=== PATIENT | male | born 1990 | race Caucasian/White ===

== ENCOUNTER 2017-03-26 16:25 | Emergency (ER) | payer BC, MEDICAID ==
--- NOTE | 2017-03-26 17:08 | Emergency Department Record ---
History of Present Illness - General Chief complaint: Extremity Problem Stated complaint: RIGHT HAND INJURY Time Seen by Provider: 03/26/17 16:51 Source: Patient Mode of Arrival: Ambulatory Limitations: No limitations - History of Present Illness Initial comments: pt hit a steel door w his r hand because he was upset an hour ago. he has a hx of a boxers fx 15yrs ago. MD Complaint: Extremity pain, Extremity swelling Onset/Timin -: Hour(s) Location: Right, Hand History of Same: No Radiation: Distal Severity scale (1-10): 10 Quality: Aching Consistency: Constant Improves with: Nothing Worsens with: Nothing Associated Symptoms: Denies other symptoms - Related Data Previous Rx's Medication Instructions Recorded Hydrocodone/Acetaminophen [[place] 1 each PO Q6HR #7 tablet 03/26/17 5-325 Tablet] Allergies Allergy/AdvReac Type Severity Reaction Status Date / Time iodine Allergy RASH Verified 03/26/17 16:35 Travel Screening - Travel/Exposure Within Last 30 Days Have you traveled within the last 30 days?: No Review of Systems Reviewed: No additional complaints except as noted below Constitutional: Reports: As per HPI. Denies: Chills, Fever, Malaise, Night sweats, Weakness, Weight change Eyes: Reports: As per HPI. Denies: Eye discharge, Eye pain, Photophobia, Vision change ENT: Reports: As per HPI. Denies: Congestion, Dental pain, Ear pain, Epistaxis , Hearing loss, Throat pain Respiratory: Reports: As per HPI. Denies: Cough, Dyspnea, Hemoptysis, Stridor, Wheezes Cardiovascular: Reports: As per HPI. Denies: Arrhythmia, Chest pain, Dyspnea on exertion, Edema, Murmurs, Orthopnea, Palpitations, Paroxysmal nocturnal dyspnea, Rheumatic Fever, Syncope Endocrine: Reports: As per HPI. Denies: Fatigue, Heat or cold intolerance, Polydipsia, Polyuria Gastrointestinal: Reports: As per HPI. Denies: Abdominal pain, Constipation, Diarrhea, Hematemesis, Hematochezia, Melena, Nausea, Vomiting Genitourinary: Reports: As per HPI. Denies: Dysuria, Frequency, Hematuria, Incontinence, Retention, Testicular pain, Testicular mass, Urgency Musculoskeletal: Reports: As per HPI. Denies: Arthralgia, Back pain, Gout, Joint swelling, Myalgia, Neck pain Skin: Reports: As per HPI. Denies: Bruising, Change in color, Change in hair/ nails, Lesions, Pruritus, Rash Neurological: Reports: As per HPI. Denies: Abnormal gait, Confusion, Headache, Numbness, Paresthesias, Seizure, Tingling, Tremors, Vertigo, Weakness Psychiatric: Reports: As per HPI. Denies: Anxiety, Auditory hallucinations, Depression, Homicidal thoughts, Suicidal thoughts, Visual hallucinations Hematological/Lymphatic: Reports: As per HPI. Denies: Anemia, Blood Clots, Easy bleeding, Easy bruising, Swollen glands Past Medical History - SOCIAL HISTORY Smoking Status: Current every day smoker Alcohol Use: None Drug Use: None - RESPIRATORY Hx Respiratory Disorders: No - CARDIOVASCULAR Hx Cardio Disorders: No - NEURO Hx Neuro Disorders: No - GI Hx GI Disorders: No - Hx Genitourinary Disorders: No - ENDOCRINE Hx Endocrine Disorders: No - MUSCULOSKELETAL Hx Musculoskeletal Disorders: No - PSYCH Hx Psych Problems: No - HEMATOLOGY/ONCOLOGY Hx Hematology/Oncology Disorders: No Family Medical History Any Significant Family History?: Yes Hx Cancer: Grandparents Hx Diabetes: Grandparents Physical Exam - General General Appearance: Alert, Oriented x3, Cooperative, Mild distress - Head Head exam: Normal inspection - Eye Eye exam: Normal appearance, PERRL, EOMI Pupils: Normal accommodation - ENT ENT exam: Normal exam, Mucous membranes moist, Normal external ear exam, Normal orophraynx Ear exam: Normal external inspection. negative: External canal tenderness Nasal Exam: Normal inspection. negative: Discharge, Sinus tenderness Mouth exam: Normal external inspection, Tongue normal Teeth exam: Normal inspection. negative: Dental caries Throat exam: Normal inspection. negative: Tonsillar erythema, Tonsillar exudate - Neck Neck exam: Normal inspection, Full ROM. negative: Tenderness - Respiratory Respiratory exam: Normal lung sounds bilaterally. negative: Respiratory distress - Cardiovascular Cardiovascular Exam: Regular rate, Normal rhythm, Normal heart sounds - GI/Abdominal GI/Abdominal exam: Soft, Normal bowel sounds. negative: Tenderness - Rectal Rectal exam: Deferred - exam: Deferred - Extremities Extremities exam: Normal inspection, Full ROM, Normal capillary refill, Tenderness Image of Hand: 1 - swelling and bony deformity - Back Back exam: Reports: Normal inspection, Full ROM. Denies: Muscle spasm, Rash noted, Tenderness - Neurological Neurological exam: Alert, CN II-XII intact, Normal gait, Oriented X3 - Psychiatric Psychiatric exam: Normal affect, Normal mood - Skin Skin exam: Dry, Intact, Normal color, Warm Course Vital Signs 03/26/17 16:32 Temperature 99.1 F Pulse Rate 104 H Respiratory 20 Rate Blood Pressure 129/86 Pulse Ox 99 Disposition Disposition: Discharge Clinical Impression: Boxers fracture Qualifiers: Encounter type: initial encounter Fracture type: closed Qualified Code(s): S62.339A - Displaced fracture of neck of unspecified metacarpal bone, initial encounter for closed fracture Disposition: Home, Self-Care Condition: (1) Good Instructions: Boxer Fracture (ED) Additional Instructions: follow up with orthopedic doctor. return sooner if worse. ice and elevate. motrin with pain Prescriptions: Hydrocodone/Acetaminophen [[place] 5-325 Tablet] 1 each PO Q6HR #7 tablet Referrals: KASEY KELLER [DOCTOR OF OSTEOPATH] - [facility] [Provider Group] Forms: Patient Portal Access Quality - Quality Measures Quality Measures: N/A - Blood Pressure Screening Does Patient Have Any of the Following: No Blood Pressure Classification: Pre-Hypertensive BP Reading Systolic Measurement: 129 Diastolic Measurement: 86 Screening for High Blood Pressure: < Pre-Hypertensive BP, F/U Documented > [ G8950] Pre-Hypertensive Follow-up Interventions: Follow-up with rescreen every year.
[2017-03-26] MEDS: HYDROCODONE/APAP 5/325MG TABLET PO ONE (18:41)
--- NOTE | 2017-03-28 13:16 | RADIOLOGY REPORT ---
EXAM: RIGHT HAND, THREE VIEWS HISTORY: PAIN IN FIFTH DIGIT REGION AFTER PUNCHING DOOR. HISTORY OF BOXER'S FRACTURE YEARS AGO. TECHNIQUE: Three views of the right hand were obtained. Comparison: None. Encounter: Initial. FINDINGS: There is normal bone mineralization. There is deformity of the distal aspect of the fifth metacarpal, the majority of which appears chronic though there is possible acute articular surface step-off superimposed and a nondisplaced superimposed fracture cannot be excluded. There is overlying soft tissue swelling. No other osseous evidence of fracture nor is there dislocation. The articular relations are maintained. IMPRESSION: THERE IS EVIDENCE OF AN OLD HEALED FRACTURE OF THE DISTAL FIFTH METACARPAL. THERE IS, HOWEVER, A POSSIBLE NONDISPLACED ACUTE FRACTURE SUPERIMPOSED ON THE CHRONIC DEFORMITY. THERE IS SOFT TISSUE SWELLING. NO OTHER FRACTURE NOR DISLOCATION. JOB NUMBER: [id number] [facility]
== END 2017-03-26 18:58 | disposition home or self-care (01) ==
LOC: ER 16:25
DX: S62.366A Nondisplaced fracture of neck of fifth metacarpal bone, right hand, initial encounter for closed fracture (principal); W22.8XXA Striking against or struck by other objects, initial encounter
CPT/HCPCS: 99283

== ENCOUNTER 2017-10-20 00:26 | Emergency (ER) | payer SELFPAY ==
[2017-10-20 00:53] LABS: AMPHETAMINE SCREEN URINE NOT DETECTED; BARBITURATE SCREEN URINE NOT DETECTED; BENZODIAZEPINE SCREEN URINE NOT DETECTED; COCAINE SCREEN URINE NOT DETECTED; METHADONE SCREEN URINE NOT DETECTED; METHAMPHETAMINE SCREEN NOT DETECTED; OPIATE SCREEN URINE NOT DETECTED; OXYCODONE SCREEN URINE NOT DETECTED; PHENCYCLIDINE SCREEN URINE NOT DETECTED; PROPOXYPHENE SCREEN URINE NOT DETECTED; THC SCREEN URINE DETECTED; TRICYCLIC ANTIDEPRESSANT SCRN NOT DETECTED
--- NOTE | 2017-10-20 00:53 | Emergency Department Record ---
History of Present Illness - General Chief Complaint: Suicidal thoughts Stated Complaint: SUCIDAL Time Seen by Provider: 10/20/17 00:28 Source: Patient Mode of Arrival: Ambulatory Limitations: No limitations Travel/Exposure to [place] Within 21 Days of Symptoms: No - History of Present Illness Initial Comments: 26 yo male presents to ED for evaluation of suicidal ideation. Per friends at the bedside, the patient stated that he wanted to be dropped at home "so that he could kill himself" following a recent break-up, patient reports that he has been drinking alcohol tonight and that he was only joking. Friends at the bedside report a prevuious history of self harm (cutting of the wrists), but do no report previous suicide attempt. MD Complaint: Other Onset/Timin -: Hour(s) Associated Psychiatric Symptoms: Other History of same: Yes Improves With: None Worsens With: Alcohol Associated Symptoms: Denies other symptoms Treatments Prior to Arrival: None - Ted Coma Scale Eye Response: (4) Open spontaneously Motor Response: (6) Obeys commands Verbal Response: (5) Oriented [place] Total: 15 - Related Data Previous Rx's Medication Instructions Recorded Hydrocodone/Acetaminophen [[place] 1 each PO Q6HR #7 tablet 03/26/17 5-325 Tablet] Allergies Allergy/AdvReac Type Severity Reaction Status Date / Time iodine Allergy RASH Verified 03/26/17 16:35 Review of Systems ROS unobtainable: Other (Patient is non-cooperative with the history and physical examination) Past Medical History - SOCIAL HISTORY Smoking Status: Current every day smoker Alcohol Use: None Drug Use: None - RESPIRATORY Hx Respiratory Disorders: No - CARDIOVASCULAR Hx Cardio Disorders: No - NEURO Hx Neuro Disorders: No - GI Hx GI Disorders: No - Hx Genitourinary Disorders: No - ENDOCRINE Hx Endocrine Disorders: No - MUSCULOSKELETAL Hx Musculoskeletal Disorders: No Comment:: L shoulder pain - PSYCH Hx Psych Problems: No - HEMATOLOGY/ONCOLOGY Hx Hematology/Oncology Disorders: No Family Medical History Any Significant Family History?: No Hx Cancer: Grandparents Hx Diabetes: Grandparents Physical Exam - General General Appearance: Alert, Oriented x3, Cooperative, Other (Patient is clinically intoxicated, agitated on exam.) Limitations: No limitations - Head Head exam: Atraumatic, Normocephalic, Normal inspection Head exam detail: negative: Abrasion, Contusion, Garcia's sign, General tenderness, Hematoma, Laceration - Eye Eye exam: Normal appearance. negative: Conjunctival injection, Periorbital swelling, Periorbital tenderness, Scleral icterus - ENT Ear exam: negative: Auricular hematoma, Auricular trauma Nasal Exam: negative: Active bleeding, Discharge, Dried blood, Foreign body Mouth exam: negative: Drooling, Laceration, Muffled voice, Tongue elevation - Neck Neck exam: Normal inspection. negative: Meningismus, Tenderness - Respiratory Respiratory exam: Normal lung sounds bilaterally. negative: Rales, Respiratory distress, Rhonchi, Stridor - Cardiovascular Cardiovascular Exam: Regular rate, Normal rhythm, Normal heart sounds - GI/Abdominal GI/Abdominal exam: Soft. negative: Rebound, Rigid, Tenderness - Rectal Rectal exam: Deferred - exam: Deferred - Extremities Extremities exam: Other (Previous well-healed scars to the left wrist on examination). negative: Calf tenderness, Pedal edema, Tenderness - Back Back exam: Denies: CVA tenderness (R), CVA tenderness (L) - Neurological Neurological exam: Alert, Normal gait, Oriented X3 - Psychiatric Psychiatric exam: Agitated - Skin Skin exam: Normal color. negative: Abrasion Type of lesion: negative: abrasion Course Vital Signs 10/20/17 00:31 Temperature 97.8 F Pulse Rate [ 90 Pulse Ox Probe] Respiratory 22 Rate Blood Pressure 138/88 [Left Arm] Pulse Ox 98 - Reevaluation(s) Reevaluation #1: 10/20/17 01:10 Patient fled while all staff members were in rooms with other patients, police notified. Reevaluation #2: 10/20/17 01:37 Labs reviewed, Alcohol 0.291, labs are otherwise grossly unremarkable for an acute process. Medical Decision Making - Lab Data Result diagrams: 10/20/17 00:53 10/20/17 00:53 Disposition Disposition: Other ([place]) Clinical Impression: Alcohol intoxication Qualifiers: Complication of substance-induced condition: uncomplicated Qualified Code(s): F10.920 - Alcohol use, unspecified with intoxication, uncomplicated Disposition: Home, Self-Care Forms: Patient Portal Access Time of Disposition: 02:31 Quality - Quality Measures Quality Measures: N/A - Blood Pressure Screening Does Patient Have Any of the Following: No Blood Pressure Classification: Pre-Hypertensive BP Reading Systolic Measurement: 138 Diastolic Measurement: 88 Screening for High Blood Pressure: < Pre-Hypertensive BP, F/U Documented > [ G8950] Pre-Hypertensive Follow-up Interventions: Referral to alternative/primary care provider.
[2017-10-20 01:02] LABS: BASO % 0.5 % (0-6); HEMATOCRIT 43.5 % (42.0-52.0); HEMOGLOBIN 14.6 gm/dl (14.0-18.0); LYMPH % 29.7 % (16-45); MEAN CELL VOLUME 93.8 fl (81-97); MEAN CORPUSCULAR HEMOGLOBIN 31.5 pg (27-33); MEAN CORPUSCULAR HGB CONC 33.6 g/dl (32-36); MEAN PLATELET VOLUME 10.1 fl (7.4-10.4); MONO % 7.8 % (0-9); PLATELET COUNT 385 K/uL (130-400); RED BLOOD COUNT 4.64 M/uL (4.40-5.70); RED CELL DISTRIBUTION WIDTH 15.2 % (11.5-14.5); WHITE BLOOD COUNT W/O DIFF 8.6 K/uL (4.2-12.2)
[2017-10-20 01:17] LABS: ALBUMIN 4.6 g/dL (4.0-5.0); ALKALINE PHOSPHATASE 78 U/L (40-129); ALT/SGPT 31 U/L (<41); AST/SGOT 32 U/L (10.0-50.0); BLOOD UREA NITROGEN 8 mg/dL (6-20)
[2017-10-20 01:18] LABS: ACETAMINOPHEN < 5.0 ug/mL (10.0-30.0); ALB/GLOB RATIO 1.5 (1.1-1.8); ALCOHOL 0.291 g/dL (0-0.010); CREATININE 0.6 mg/dL (0.7-1.2); EST GLOMERULAR FILTRATION RATE > 60 mL/min; GLUCOSE,RANDOM 80 mg/dL (74-109); SALICYLATE < 0.3 mg/dL (2.8-20); TOTAL PROTEIN 7.7 g/dL (6.6-8.7)
[2017-10-20 01:28] LABS: THYROID STIMULATING HORMONE 1.57 uIU/mL (0.270-4.20)
== END 2017-10-20 01:00 | disposition home or self-care (01) ==
LOC: ER 00:26
DX: F10.120 Alcohol abuse with intoxication, uncomplicated (principal); F17.210 Nicotine dependence, cigarettes, uncomplicated; Y90.8 Blood alcohol level of 240 mg/100 ml or more
CPT/HCPCS: 99283 ×2; 85025; 80053; 84443; 80305; G0480 ×3; 80320; 80329

== ENCOUNTER 2017-10-20 02:30 | Emergency (ER) | payer SELFPAY ==
--- NOTE | 2017-10-20 02:39 | Emergency Department Record ---
History of Present Illness - General Stated Complaint: ALC INTOX Time Seen by Provider: 10/20/17 02:32 Source: Patient Mode of Arrival: Ambulatory Limitations: No limitations - History of Present Illness Initial Comments: 26 yo male returns with police for re-evaluation. Patient was seen earlier this evening for alcohol intoxication and reported suicidal statements, patient reports "I was just joking and didn't mean". Patient reports that he was upset that his girlfriend left him for a friend of his. Per friends a the bedside, patient has a history of self harm previously (cutting). Patient does reports drinking alcohol tonight. MD Complaint: Alcohol intoxication Last Drink: Unknown Time Since Last Drink: 2 -: Hour(s) Recent Trauma: No Associated Symptoms: Denies other symptoms Treatments Prior to Arrival: None - Ted Coma Scale Eye Response: (4) Open spontaneously Motor Response: (6) Obeys commands Verbal Response: (5) Oriented [place] Total: 15 - Related Data Previous Rx's Medication Instructions Recorded Hydrocodone/Acetaminophen [[place] 1 each PO Q6HR #7 tablet 03/26/17 5-325 Tablet] Allergies Allergy/AdvReac Type Severity Reaction Status Date / Time iodine Allergy RASH Verified 03/26/17 16:35 Review of Systems ROS unobtainable: Other (Patient is non-cooperative with the examination) Past Medical History - SOCIAL HISTORY Smoking Status: Current every day smoker Drug Use: None - RESPIRATORY Hx Respiratory Disorders: No - CARDIOVASCULAR Hx Cardio Disorders: No - NEURO Hx Neuro Disorders: No - GI Hx GI Disorders: No - Hx Genitourinary Disorders: No - ENDOCRINE Hx Endocrine Disorders: No - MUSCULOSKELETAL Hx Musculoskeletal Disorders: No Comment:: L shoulder pain - PSYCH Hx Psych Problems: No - HEMATOLOGY/ONCOLOGY Hx Hematology/Oncology Disorders: No Family Medical History Hx Cancer: Grandparents Hx Diabetes: Grandparents Physical Exam - General General Appearance: Alert, Oriented x3, Other (Clinically intoxicated) Limitations: No limitations - Head Head exam: Atraumatic, Normocephalic, Normal inspection Head exam detail: negative: Abrasion, Contusion, Garcia's sign, General tenderness, Hematoma, Laceration - Eye Eye exam: Normal appearance. negative: Conjunctival injection, Periorbital swelling, Periorbital tenderness, Scleral icterus - ENT Ear exam: negative: Auricular hematoma, Auricular trauma Nasal Exam: negative: Active bleeding, Discharge, Dried blood, Foreign body - Neck Neck exam: Normal inspection. negative: Meningismus, Tenderness - Respiratory Respiratory exam: Normal lung sounds bilaterally. negative: Rales, Respiratory distress, Rhonchi, Stridor - Cardiovascular Cardiovascular Exam: Regular rate, Normal rhythm, Normal heart sounds - GI/Abdominal GI/Abdominal exam: Soft. negative: Rebound, Rigid, Tenderness - Rectal Rectal exam: Deferred - exam: Deferred - Extremities Extremities exam: Normal inspection. negative: Pedal edema, Tenderness - Back Back exam: Denies: CVA tenderness (R), CVA tenderness (L) - Neurological Neurological exam: Alert, Normal gait, Oriented X3 - Psychiatric Psychiatric exam: Agitated - Skin Skin exam: Normal color. negative: Abrasion Type of lesion: negative: abrasion Course - Reevaluation(s) Reevaluation #1: 10/20/17 04:21 Labs reviewed, Alcohol 0.238, labs are otherwise grossly unremarkable for an acute process. Patient is resting comfortably at this time, will continue to observe pending alcohol detoxification for psychiatric re-evaluation. Reevaluation #2: 10/20/17 06:33 Patient reassessed, resting comfortably at this time. Patient's care will be turned over with a plan for re-evaluation for suicidal ideation when his alcohol level is <0.80. Medical Decision Making - Lab Data Result diagrams: 10/20/17 02:45 10/20/17 02:45 Quality - Quality Measures Quality Measures: N/A - Blood Pressure Screening Does Patient Have Any of the Following: No Blood Pressure Classification: Normal BP Reading Systolic Measurement: 110 Diastolic Measurement: 68 Screening for High Blood Pressure: < Normal BP, F/U Not Required > [G8783]
[2017-10-20 02:57] LABS: BASO % 0.5 % (0-6); EOS % 2.6 % (0-6); GRAN % 69.6 % (47-80); HEMATOCRIT 42.2 % (42.0-52.0); HEMOGLOBIN 14.3 gm/dl (14.0-18.0); LYMPH % 22.2 % (16-45); MEAN CELL VOLUME 93.2 fl (81-97); MEAN CORPUSCULAR HEMOGLOBIN 31.6 pg (27-33); MEAN CORPUSCULAR HGB CONC 33.9 g/dl (32-36); MEAN PLATELET VOLUME 10.2 fl (7.4-10.4); MONO % 5.1 % (0-9); PLATELET COUNT 387 K/uL (130-400); RED BLOOD COUNT 4.53 M/uL (4.40-5.70); RED CELL DISTRIBUTION WIDTH 15.2 % (11.5-14.5); WHITE BLOOD COUNT W/O DIFF 7.7 K/uL (4.2-12.2)
[2017-10-20 03:08] LABS: BLOOD UREA NITROGEN 8 mg/dL (6-20); CREATININE 0.6 mg/dL (0.7-1.2); EST GLOMERULAR FILTRATION RATE > 60 mL/min
[2017-10-20 03:09] LABS: ALCOHOL 0.238 g/dL (0-0.010); TOTAL PROTEIN 7.6 g/dL (6.6-8.7)
[2017-10-20 03:11] LABS: GLUCOSE,RANDOM 86 mg/dL (74-109)
[2017-10-20 03:13] LABS: ALB/GLOB RATIO 1.4 (1.1-1.8); ALBUMIN 4.4 g/dL (4.0-5.0); ALKALINE PHOSPHATASE 78 U/L (40-129); ALT/SGPT 31 U/L (<41); AST/SGOT 35 U/L (10.0-50.0)
[2017-10-20 03:14] LABS: ACETAMINOPHEN < 5.0 ug/mL (10.0-30.0); SALICYLATE < 0.3 mg/dL (2.8-20)
[2017-10-20] MEDS ORDERED: DIPHENHYDRAMINE HCL 25 MG CAPSULE PO ONE (03:24)
[2017-10-20 05:41] LABS: AMPHETAMINE SCREEN URINE NOT DETECTED; BARBITURATE SCREEN URINE NOT DETECTED; BENZODIAZEPINE SCREEN URINE NOT DETECTED; COCAINE SCREEN URINE NOT DETECTED; METHADONE SCREEN URINE NOT DETECTED; METHAMPHETAMINE SCREEN NOT DETECTED; OPIATE SCREEN URINE NOT DETECTED; OXYCODONE SCREEN URINE NOT DETECTED; PHENCYCLIDINE SCREEN URINE NOT DETECTED; PROPOXYPHENE SCREEN URINE NOT DETECTED; THC SCREEN URINE DETECTED; TRICYCLIC ANTIDEPRESSANT SCRN NOT DETECTED
--- NOTE | 2017-10-20 10:29 | Emergency Department Record ---
History of Present Illness - General Chief Complaint: Alcohol Intoxication Stated Complaint: ALC INTOX Time Seen by Provider: 10/20/17 02:32 Source: Patient Mode of Arrival: Ambulatory Limitations: No limitations - History of Present Illness Last Drink: Unknown Time Since Last Drink: 2 -: Hour(s) Chronic Alcohol Use: Yes Previous Visits for Alcohol Intoxication?: No Recent Trauma: No Associated Symptoms: Denies other symptoms Treatments Prior to Arrival: None - Ted Coma Scale Eye Response: (4) Open spontaneously Motor Response: (6) Obeys commands Verbal Response: (5) Oriented [place] Total: 15 - Related Data Previous Rx's Medication Instructions Recorded Hydrocodone/Acetaminophen [[place] 1 each PO Q6HR #7 tablet 03/26/17 5-325 Tablet] Allergies Allergy/AdvReac Type Severity Reaction Status Date / Time iodine Allergy RASH Verified 03/26/17 16:35 Travel Screening - Travel/Exposure Within Last 30 Days Have you traveled within the last 30 days?: No - Travel Symptoms Symptom Screening: None Past Medical History - SOCIAL HISTORY Smoking Status: Current every day smoker Drug Use: None - RESPIRATORY Hx Respiratory Disorders: No - CARDIOVASCULAR Hx Cardio Disorders: No - NEURO Hx Neuro Disorders: No - GI Hx GI Disorders: No - Hx Genitourinary Disorders: No - ENDOCRINE Hx Endocrine Disorders: No - MUSCULOSKELETAL Hx Musculoskeletal Disorders: No Comment:: L shoulder pain - PSYCH Hx Psych Problems: No - HEMATOLOGY/ONCOLOGY Hx Hematology/Oncology Disorders: No Family Medical History Hx Cancer: Grandparents Hx Diabetes: Grandparents Physical Exam - General Limitations: No limitations Course Vital Signs 10/20/17 10/20/17 10/20/17 02:57 04:55 09:27 Pulse Rate [ 101 H 91 H 79 Pulse Ox Probe] Respiratory 20 20 16 Rate Blood Pressure 133/105 110/68 122/67 [Left Arm] Pulse Ox 97 98 97 - Reevaluation(s) Reevaluation #1: 10/20/17 10:23 talked w pt when his etoh was0-06. he denies suicidality. girlfriend is present and will be with pt. pt contracted for safety. Medical Decision Making - Lab Data Result diagrams: 10/20/17 02:45 10/20/17 02:45 Lab Results 10/20/17 10/20/17 10/20/17 Range/Units 02:45 02:45 02:45 WBC 7.7 (4.2-12.2) K/uL RBC 4.53 (4.40-5.70) M/uL Hgb 14.3 (14.0-18.0) gm/dl Hct 42.2 (42.0-52.0) % MCV 93.2 (81-97) fl MCH 31.6 (27-33) pg MCHC 33.9 (32-36) g/dl RDW 15.2 H (11.5-14.5) % Plt Count 387 (130-400) K/uL MPV 10.2 (7.4-10.4) fl Gran % 69.6 (47-80) % Lymphocytes % 22.2 (16-45) % Monocytes % 5.1 (0-9) % Eosinophils % 2.6 (0-6) % Basophils % 0.5 (0-6) % Sodium 141 (136-145) mmol/L Potassium 4.2 (3.4-4.5) mmol/L Chloride 104 (98-107) mmol/L Carbon Dioxide 19.0 L (22-29) mmol/L Anion Gap 18.0 H (7-16) BUN 8 (6-20) mg/dL Creatinine 0.6 L (0.7-1.2) mg/dL Estimated GFR > 60 mL/min Random Glucose 86 (74-109) mg/dL Calcium 8.4 L (8.6-10.0) mg/dL Total Bilirubin 0.20 (0.2-1.0) mg/dL AST 35 (10.0-50.0) U/L ALT 31 (<41) U/L Alkaline Phosphatase 78 (40-129) U/L Total Protein 7.6 (6.6-8.7) g/dL Albumin 4.4 (4.0-5.0) g/dL Globulin 3.2 (1.4-4.8) gm/dL Albumin/Globulin Ratio 1.4 (1.1-1.8) TSH 1.57 (0.270-4.20) uIU/mL Salicylates < 0.3 L (2.8-20) mg/dL Urine Opiates Screen Ur Oxycodone Screen Urine Methadone Screen Ur Propoxyphene Screen Acetaminophen < 5.0 L (10.0-30.0) ug/mL Ur Barbituates Screen Ur Tricyclics Screen Ur Phencyclidine Scrn Ur Amphetamine Screen U Methamphetamines Scrn U Benzodiazepines Scrn Urine Cocaine Screen Urine Cannabis Screen Ethyl Alcohol 0.238 H (0-0.010) g/dL 10/20/17 10/20/17 Range/Units 05:41 08:20 WBC (4.2-12.2) K/uL RBC (4.40-5.70) M/uL Hgb (14.0-18.0) gm/dl Hct (42.0-52.0) % MCV (81-97) fl MCH (27-33) pg MCHC (32-36) g/dl RDW (11.5-14.5) % Plt Count (130-400) K/uL MPV (7.4-10.4) fl Gran % (47-80) % Lymphocytes % (16-45) % Monocytes % (0-9) % Eosinophils % (0-6) % Basophils % (0-6) % Sodium (136-145) mmol/L Potassium (3.4-4.5) mmol/L Chloride (98-107) mmol/L Carbon Dioxide (22-29) mmol/L Anion Gap (7-16) BUN (6-20) mg/dL Creatinine (0.7-1.2) mg/dL Estimated GFR mL/min Random Glucose (74-109) mg/dL Calcium (8.6-10.0) mg/dL Total Bilirubin (0.2-1.0) mg/dL AST (10.0-50.0) U/L ALT (<41) U/L Alkaline Phosphatase (40-129) U/L Total Protein (6.6-8.7) g/dL Albumin (4.0-5.0) g/dL Globulin (1.4-4.8) gm/dL Albumin/Globulin Ratio (1.1-1.8) TSH (0.270-4.20) uIU/mL Salicylates (2.8-20) mg/dL Urine Opiates Screen Not detected Ur Oxycodone Screen Not detected Urine Methadone Screen Not detected Ur Propoxyphene Screen Not detected Acetaminophen (10.0-30.0) ug/mL Ur Barbituates Screen Not detected Ur Tricyclics Screen Not detected Ur Phencyclidine Scrn Not detected Ur Amphetamine Screen Not detected U Methamphetamines Scrn Not detected U Benzodiazepines Scrn Not detected Urine Cocaine Screen Not detected Urine Cannabis Screen Detected Ethyl Alcohol 0.088 H (0-0.010) g/dL Disposition Disposition: Discharge Clinical Impression: Alcohol intoxication Qualifiers: Complication of substance-induced condition: with unspecified complication Qualified Code(s): F10.929 - Alcohol use, unspecified with intoxication, unspecified Depression Qualifiers: Depression Type: unspecified Qualified Code(s): F32.9 - Major depressive disorder, single episode, unspecified Disposition: Home, Self-Care Condition: (1) Good Instructions: Alcohol Intoxication (ED), Depression (ED), Suicide Prevention for Adults (ED), Abuse of Alcohol (ED) Additional Instructions: follow up with family doctor and counseling. return sooner if worse. decrease alcohol intake Quality - Quality Measures Quality Measures: N/A - Blood Pressure Screening Does Patient Have Any of the Following: No Blood Pressure Classification: Pre-Hypertensive BP Reading Systolic Measurement: 122 Diastolic Measurement: 67 Screening for High Blood Pressure: < Pre-Hypertensive BP, F/U Documented > [ G8950] Pre-Hypertensive Follow-up Interventions: Follow-up with rescreen every year.
--- NOTE | 2017-10-20 10:32 | Emergency Department Record ---
History of Present Illness - General Chief Complaint: Alcohol Intoxication Stated Complaint: ALC INTOX Time Seen by Provider: 10/20/17 02:32 Source: Patient Mode of Arrival: Ambulatory Limitations: No limitations - History of Present Illness Last Drink: Unknown Time Since Last Drink: 2 -: Hour(s) Chronic Alcohol Use: Yes Previous Visits for Alcohol Intoxication?: No Recent Trauma: No Associated Symptoms: Denies other symptoms Treatments Prior to Arrival: None - Ted Coma Scale Eye Response: (4) Open spontaneously Motor Response: (6) Obeys commands Verbal Response: (5) Oriented [place] Total: 15 - Related Data Previous Rx's Medication Instructions Recorded Hydrocodone/Acetaminophen [[place] 1 each PO Q6HR #7 tablet 03/26/17 5-325 Tablet] Allergies Allergy/AdvReac Type Severity Reaction Status Date / Time iodine Allergy RASH Verified 03/26/17 16:35 Travel Screening - Travel/Exposure Within Last 30 Days Have you traveled within the last 30 days?: No - Travel Symptoms Symptom Screening: None Past Medical History - SOCIAL HISTORY Smoking Status: Current every day smoker Drug Use: None - RESPIRATORY Hx Respiratory Disorders: No - CARDIOVASCULAR Hx Cardio Disorders: No - NEURO Hx Neuro Disorders: No - GI Hx GI Disorders: No - Hx Genitourinary Disorders: No - ENDOCRINE Hx Endocrine Disorders: No - MUSCULOSKELETAL Hx Musculoskeletal Disorders: No Comment:: L shoulder pain - PSYCH Hx Psych Problems: No - HEMATOLOGY/ONCOLOGY Hx Hematology/Oncology Disorders: No Family Medical History Hx Cancer: Grandparents Hx Diabetes: Grandparents Physical Exam - General Limitations: No limitations Course Vital Signs 10/20/17 10/20/17 10/20/17 02:57 04:55 09:27 Pulse Rate [ 101 H 91 H 79 Pulse Ox Probe] Respiratory 20 20 16 Rate Blood Pressure 133/105 110/68 122/67 [Left Arm] Pulse Ox 97 98 97 - Reevaluation(s) Reevaluation #1: 10/20/17 10:31 pt legally sober now, denies any suicidal thoughts and contracts for safety. pt given numbers for counseling Medical Decision Making - Lab Data Result diagrams: 10/20/17 02:45 10/20/17 02:45 Lab Results 10/20/17 10/20/17 10/20/17 Range/Units 02:45 02:45 02:45 WBC 7.7 (4.2-12.2) K/uL RBC 4.53 (4.40-5.70) M/uL Hgb 14.3 (14.0-18.0) gm/dl Hct 42.2 (42.0-52.0) % MCV 93.2 (81-97) fl MCH 31.6 (27-33) pg MCHC 33.9 (32-36) g/dl RDW 15.2 H (11.5-14.5) % Plt Count 387 (130-400) K/uL MPV 10.2 (7.4-10.4) fl Gran % 69.6 (47-80) % Lymphocytes % 22.2 (16-45) % Monocytes % 5.1 (0-9) % Eosinophils % 2.6 (0-6) % Basophils % 0.5 (0-6) % Sodium 141 (136-145) mmol/L Potassium 4.2 (3.4-4.5) mmol/L Chloride 104 (98-107) mmol/L Carbon Dioxide 19.0 L (22-29) mmol/L Anion Gap 18.0 H (7-16) BUN 8 (6-20) mg/dL Creatinine 0.6 L (0.7-1.2) mg/dL Estimated GFR > 60 mL/min Random Glucose 86 (74-109) mg/dL Calcium 8.4 L (8.6-10.0) mg/dL Total Bilirubin 0.20 (0.2-1.0) mg/dL AST 35 (10.0-50.0) U/L ALT 31 (<41) U/L Alkaline Phosphatase 78 (40-129) U/L Total Protein 7.6 (6.6-8.7) g/dL Albumin 4.4 (4.0-5.0) g/dL Globulin 3.2 (1.4-4.8) gm/dL Albumin/Globulin Ratio 1.4 (1.1-1.8) TSH 1.57 (0.270-4.20) uIU/mL Salicylates < 0.3 L (2.8-20) mg/dL Urine Opiates Screen Ur Oxycodone Screen Urine Methadone Screen Ur Propoxyphene Screen Acetaminophen < 5.0 L (10.0-30.0) ug/mL Ur Barbituates Screen Ur Tricyclics Screen Ur Phencyclidine Scrn Ur Amphetamine Screen U Methamphetamines Scrn U Benzodiazepines Scrn Urine Cocaine Screen Urine Cannabis Screen Ethyl Alcohol 0.238 H (0-0.010) g/dL 10/20/17 10/20/17 Range/Units 05:41 08:20 WBC (4.2-12.2) K/uL RBC (4.40-5.70) M/uL Hgb (14.0-18.0) gm/dl Hct (42.0-52.0) % MCV (81-97) fl MCH (27-33) pg MCHC (32-36) g/dl RDW (11.5-14.5) % Plt Count (130-400) K/uL MPV (7.4-10.4) fl Gran % (47-80) % Lymphocytes % (16-45) % Monocytes % (0-9) % Eosinophils % (0-6) % Basophils % (0-6) % Sodium (136-145) mmol/L Potassium (3.4-4.5) mmol/L Chloride (98-107) mmol/L Carbon Dioxide (22-29) mmol/L Anion Gap (7-16) BUN (6-20) mg/dL Creatinine (0.7-1.2) mg/dL Estimated GFR mL/min Random Glucose (74-109) mg/dL Calcium (8.6-10.0) mg/dL Total Bilirubin (0.2-1.0) mg/dL AST (10.0-50.0) U/L ALT (<41) U/L Alkaline Phosphatase (40-129) U/L Total Protein (6.6-8.7) g/dL Albumin (4.0-5.0) g/dL Globulin (1.4-4.8) gm/dL Albumin/Globulin Ratio (1.1-1.8) TSH (0.270-4.20) uIU/mL Salicylates (2.8-20) mg/dL Urine Opiates Screen Not detected Ur Oxycodone Screen Not detected Urine Methadone Screen Not detected Ur Propoxyphene Screen Not detected Acetaminophen (10.0-30.0) ug/mL Ur Barbituates Screen Not detected Ur Tricyclics Screen Not detected Ur Phencyclidine Scrn Not detected Ur Amphetamine Screen Not detected U Methamphetamines Scrn Not detected U Benzodiazepines Scrn Not detected Urine Cocaine Screen Not detected Urine Cannabis Screen Detected Ethyl Alcohol 0.088 H (0-0.010) g/dL Disposition Disposition: Discharge Clinical Impression: Alcohol intoxication Qualifiers: Complication of substance-induced condition: with unspecified complication Qualified Code(s): F10.929 - Alcohol use, unspecified with intoxication, unspecified Depression Qualifiers: Depression Type: unspecified Qualified Code(s): F32.9 - Major depressive disorder, single episode, unspecified Disposition: Home, Self-Care Condition: (1) Good Instructions: Depression (ED), Alcohol Intoxication (ED), Abuse of Alcohol (ED) , Suicide Prevention for Adults (ED) Additional Instructions: follow up with family doctor and counseling. return sooner if worse. decrease alcohol intake Forms: Patient Portal Access Quality - Quality Measures Quality Measures: N/A - Blood Pressure Screening Does Patient Have Any of the Following: No Blood Pressure Classification: Pre-Hypertensive BP Reading Systolic Measurement: 122 Diastolic Measurement: 67 Screening for High Blood Pressure: < Pre-Hypertensive BP, F/U Documented > [ G8950] Pre-Hypertensive Follow-up Interventions: Follow-up with rescreen every year.
== END 2017-10-20 10:43 | disposition home or self-care (01) ==
LOC: ER 02:30
DX: F10.120 Alcohol abuse with intoxication, uncomplicated (principal); F32.9 Major depressive disorder, single episode, unspecified; F17.210 Nicotine dependence, cigarettes, uncomplicated; Y90.7 Blood alcohol level of 200-239 mg/100 ml
CPT/HCPCS: 99283 ×2; 85025; 80053; 84443; 80305; G0480 ×3; 80320; 80329

== ENCOUNTER 2017-11-12 10:15 | Emergency (ER) | payer SELFPAY ==
--- NOTE | 2017-11-12 10:33 | Emergency Department Record ---
History of Present Illness - General Chief Complaint: Alcohol Intoxication Stated Complaint: INTOXICATION Time Seen by Provider: 11/12/17 10:25 Mode of Arrival: EMS/Police - History of Present Illness Initial Comments: patient was drinking last night and police were called and kandace was transported to the ED for evaluation and he told police he wanted to kill himself. patient was treated 6 months ago at [facility] and he states he was here 2 weeks ago. Associated Symptoms: Denies other symptoms Treatments Prior to Arrival: None - Ted Coma Scale Eye Response: (4) Open spontaneously Motor Response: (6) Obeys commands Verbal Response: (5) Oriented [place] Total: 15 - Related Data Home Medications Medication Instructions Recorded Confirmed Last Taken No Home Med [NO HOME MEDS] 11/12/17 11/12/17 Unknown Allergies Allergy/AdvReac Type Severity Reaction Status Date / Time iodine Allergy RASH Verified 11/12/17 10:25 Travel Screening - Travel/Exposure Within Last 30 Days Have you traveled within the last 30 days?: No Review of Systems Reviewed: No additional complaints except as noted below Constitutional: Reports: As per HPI. Denies: Chills, Fever, Malaise, Night sweats, Weakness, Weight change Eyes: Reports: As per HPI. Denies: Eye discharge, Eye pain, Photophobia, Vision change ENT: Reports: As per HPI. Denies: Congestion, Dental pain, Ear pain, Epistaxis , Hearing loss, Throat pain Respiratory: Reports: As per HPI. Denies: Cough, Dyspnea, Hemoptysis, Stridor, Wheezes Cardiovascular: Reports: As per HPI. Denies: Arrhythmia, Chest pain, Dyspnea on exertion, Edema, Murmurs, Orthopnea, Palpitations, Paroxysmal nocturnal dyspnea, Rheumatic Fever, Syncope Endocrine: Reports: As per HPI. Denies: Fatigue, Heat or cold intolerance, Polydipsia, Polyuria Gastrointestinal: Reports: As per HPI. Denies: Abdominal pain, Constipation, Diarrhea, Hematemesis, Hematochezia, Melena, Nausea, Vomiting Genitourinary: Reports: As per HPI. Denies: Dysuria, Frequency, Hematuria, Incontinence, Retention, Testicular pain, Testicular mass, Urgency Musculoskeletal: Reports: As per HPI. Denies: Arthralgia, Back pain, Gout, Joint swelling, Myalgia, Neck pain Skin: Reports: As per HPI. Denies: Bruising, Change in color, Change in hair/ nails, Lesions, Pruritus, Rash Neurological: Reports: As per HPI. Denies: Abnormal gait, Confusion, Headache, Numbness, Paresthesias, Seizure, Tingling, Tremors, Vertigo, Weakness Psychiatric: Reports: As per HPI. Denies: Anxiety, Auditory hallucinations, Depression, Homicidal thoughts, Suicidal thoughts, Visual hallucinations Hematological/Lymphatic: Reports: As per HPI. Denies: Anemia, Blood Clots, Easy bleeding, Easy bruising, Swollen glands Past Medical History - SOCIAL HISTORY Smoking Status: Current every day smoker Alcohol Use: None Drug Use: Occasional Drug Use Detail:: Marijuana - RESPIRATORY Hx Respiratory Disorders: No - CARDIOVASCULAR Hx Cardio Disorders: No - NEURO Hx Neuro Disorders: No - GI Hx GI Disorders: No - Hx Genitourinary Disorders: No - ENDOCRINE Hx Endocrine Disorders: No - MUSCULOSKELETAL Hx Musculoskeletal Disorders: No Comment:: L shoulder pain - PSYCH Hx Psych Problems: No - HEMATOLOGY/ONCOLOGY Hx Hematology/Oncology Disorders: No Family Medical History Any Significant Family History?: Yes Hx Cancer: Grandparents Hx Diabetes: Grandparents Physical Exam - General General Appearance: Alert, Oriented x3, Cooperative, No acute distress - Head Head exam: Normal inspection - Eye Eye exam: Normal appearance, PERRL Pupils: Normal accommodation - ENT ENT exam: Normal exam, Mucous membranes moist, Normal external ear exam, Normal orophraynx, TM's normal bilaterally Ear exam: Normal external inspection. negative: External canal tenderness Nasal Exam: Normal inspection. negative: Discharge, Sinus tenderness Mouth exam: Normal external inspection, Tongue normal Teeth exam: Normal inspection. negative: Dental caries Throat exam: Normal inspection. negative: Tonsillar erythema, Tonsillar exudate - Neck Neck exam: Normal inspection, Full ROM. negative: Tenderness - Respiratory Respiratory exam: Normal lung sounds bilaterally. negative: Respiratory distress - Cardiovascular Cardiovascular Exam: Regular rate, Normal rhythm, Normal heart sounds - GI/Abdominal GI/Abdominal exam: Soft, Normal bowel sounds. negative: Tenderness - Rectal Rectal exam: Deferred - exam: Deferred - Extremities Extremities exam: Normal inspection, Full ROM, Normal capillary refill. negative: Tenderness - Back Back exam: Reports: Normal inspection, Full ROM. Denies: Muscle spasm, Rash noted, Tenderness - Neurological Neurological exam: Alert, Normal gait, Oriented X3, Reflexes normal - Psychiatric Psychiatric exam: Normal affect, Normal mood - Skin Skin exam: Dry, Intact, Normal color, Warm Course Vital Signs 11/12/17 10:21 Temperature 97.4 F L Pulse Rate 100 H Respiratory 20 Rate Blood Pressure 134/89 Pulse Ox 99 - Reevaluation(s) Reevaluation #1: patient neuro exam is negative and he is alert and acting appropriately and now denies suicidal and he said he was being stupid and he is willing to go back to . He also made a contract with me and would return to ED if he becomes suicidal, also will give him [facility] number for counciling and he should go there in 1-2 days 11/12/17 17:11 11/12/17 17:16 Medical Decision Making - Lab Data Result diagrams: 11/12/17 11:17 11/12/17 11:17 Disposition Clinical Impression: Alcohol intoxication Qualifiers: Complication of substance-induced condition: uncomplicated Qualified Code(s): F10.920 - Alcohol use, unspecified with intoxication, uncomplicated Depression Qualifiers: Depression Type: unspecified Qualified Code(s): F32.9 - Major depressive disorder, single episode, unspecified Disposition: Home, Self-Care Condition: (1) Good Instructions: Abuse of Alcohol (ED) Additional Instructions: follow up councilors at [facility] for counciling and substance abuse treatment. Forms: Patient Portal Access Time of Disposition: 17:16 Quality - Quality Measures Quality Measures: N/A - Blood Pressure Screening Does Patient Have Any of the Following: No Blood Pressure Classification: Pre-Hypertensive BP Reading Systolic Measurement: 134 Diastolic Measurement: 89 Screening for High Blood Pressure: < Pre-Hypertensive BP, F/U Documented > [ G8950] Pre-Hypertensive Follow-up Interventions: Referral to alternative/primary care provider.
[2017-11-12] MEDS ORDERED: THIAMINE MONONITRATE 100 MG TABLET PO SCH (10:45)
[2017-11-12 11:24] LABS: BASO % 0.5 % (0-6); EOS % 2.6 % (0-6); GRAN % 65.8 % (47-80); HEMATOCRIT 43.4 % (42.0-52.0); HEMOGLOBIN 14.9 gm/dl (14.0-18.0); LYMPH % 25.8 % (16-45); MEAN CELL VOLUME 93.1 fl (81-97); MEAN CORPUSCULAR HGB CONC 34.3 g/dl (32-36); MEAN PLATELET VOLUME 10.2 fl (7.4-10.4); MONO % 5.3 % (0-9); PLATELET COUNT 398 K/uL (130-400); RED BLOOD COUNT 4.66 M/uL (4.40-5.70); RED CELL DISTRIBUTION WIDTH 13.7 % (11.5-14.5); WHITE BLOOD COUNT W/O DIFF 6.2 K/uL (4.2-12.2)
[2017-11-12 11:25] LABS: URINE APPEARANCE CLEAR; URINE BILIRUBIN NEGATIVE (NEGATIVE); URINE BLOOD NEGATIVE (NEGATIVE); URINE COLOR YELLOW; URINE GLUCOSE (UA) NEGATIVE (NEGATIVE); URINE KETONE NEGATIVE (NEGATIVE); URINE LEUKOCYTE ESTERASE NEGATIVE (NEGATIVE); URINE NITRITE NEGATIVE (NEGATIVE); URINE PROTEIN NEGATIVE (NEGATIVE); URINE UROBILINOGEN 0.2 E.U./dL (0.20 - 1.00)
[2017-11-12 11:29] LABS: AMPHETAMINE SCREEN URINE NOT DETECTED; BARBITURATE SCREEN URINE NOT DETECTED; BENZODIAZEPINE SCREEN URINE NOT DETECTED; COCAINE SCREEN URINE NOT DETECTED; METHADONE SCREEN URINE NOT DETECTED; METHAMPHETAMINE SCREEN NOT DETECTED; OPIATE SCREEN URINE NOT DETECTED; OXYCODONE SCREEN URINE NOT DETECTED; PHENCYCLIDINE SCREEN URINE NOT DETECTED; PROPOXYPHENE SCREEN URINE NOT DETECTED; THC SCREEN URINE NOT DETECTED; TRICYCLIC ANTIDEPRESSANT SCRN NOT DETECTED
[2017-11-12 11:40] LABS: BLOOD UREA NITROGEN 7 mg/dL (6-20); CREATININE 0.6 mg/dL (0.7-1.2); EST GLOMERULAR FILTRATION RATE > 60 mL/min
[2017-11-12 11:41] LABS: TOTAL PROTEIN 7.3 g/dL (6.6-8.7)
[2017-11-12 11:43] LABS: GLUCOSE,RANDOM 103 mg/dL (74-109)
[2017-11-12 11:45] LABS: ALCOHOL 0.198 g/dL (0-0.010)
[2017-11-12 11:46] LABS: ALB/GLOB RATIO 1.7 (1.1-1.8); ALBUMIN 4.6 g/dL (4.0-5.0); ALKALINE PHOSPHATASE 77 U/L (40-129); ALT/SGPT 27 U/L (<41); AST/SGOT 31 U/L (10.0-50.0)
[2017-11-14 15:12] LABS: GC SPECIMEN TYPE Urine
== END 2017-11-12 17:36 | disposition home or self-care (01) ==
LOC: ER 10:15
DX: F10.129 Alcohol abuse with intoxication, unspecified (principal); F32.9 Major depressive disorder, single episode, unspecified; F17.210 Nicotine dependence, cigarettes, uncomplicated; Y90.6 Blood alcohol level of 120-199 mg/100 ml
CPT/HCPCS: 99283; 99284; 83735; 85025; 80053; 81003; 80305; G0480; 80320

== ENCOUNTER 2018-03-12 22:59 | Emergency (ER) | payer SELFPAY ==
--- NOTE | 2018-03-12 23:11 | Emergency Department Record ---
History of Present Illness - General Chief Complaint: Wound, puncture Stated Complaint: GLASS IN RIGHT LEG Time Seen by Provider: 03/12/18 23:04 Source: Patient Mode of Arrival: Ambulatory Limitations: No limitations - History of Present Illness Initial Commments: 27 yo male presents with pain is his right leg. He states he landed on a broken fluorescent light bulb about 2 months ago over the upper lateral lower leg. He states he pulled a large piece of glass out of the leg then. The leg has not felt the same since then. About one month ago he felt what he thought was more glass in the leg. The area has continued to become more painful over time. He has not sought medical care for this issue. He admits to drinking alcohol and smoking medical marijuana for pain control prior to coming into the ED. No PCP. The leg has not been red, warm, swollen. He has not had any drainage of the leg. He has not experienced any signs of infection. -: Month(s) Extremity Location: Right: Lower leg Place: Home Context: Accidental Associated Symptoms: Pain - [place] Coma Scale Eye Response: (4) Open spontaneously Motor Response: (6) Obeys commands Verbal Response: (5) Oriented [place] Total: 15 - Related Data Hx Tetanus Toxoid Vaccination: Yes Year of Tetanus Vaccination: 2007 Allergies Allergy/AdvReac Type Severity Reaction Status Date / Time iodine Allergy RASH Verified 11/12/17 10:25 Review of Systems Constitutional: Denies: Chills, Fever, Malaise, Weakness Eyes: Denies: Eye discharge ENT: Denies: Congestion, Throat pain Respiratory: Denies: Cough Cardiovascular: Denies: Chest pain Endocrine: Denies: Fatigue Gastrointestinal: Denies: Abdominal pain, Diarrhea, Nausea, Vomiting Genitourinary: Denies: Dysuria, Frequency Musculoskeletal: Reports: As per HPI, Arthralgia, Myalgia Neurological: Denies: Headache Psychiatric: Denies: Anxiety Hematological/Lymphatic: Denies: Blood Clots, Easy bleeding, Easy bruising, Swollen glands Past Medical History - SOCIAL HISTORY Smoking Status: Current every day smoker Drug Use: Occasional Drug Use Detail:: Marijuana - RESPIRATORY Hx Respiratory Disorders: No - CARDIOVASCULAR Hx Cardio Disorders: No - NEURO Hx Neuro Disorders: No - GI Hx GI Disorders: No - Hx Genitourinary Disorders: No - ENDOCRINE Hx Endocrine Disorders: No - MUSCULOSKELETAL Hx Musculoskeletal Disorders: No Comment:: L shoulder pain - PSYCH Hx Psych Problems: No - HEMATOLOGY/ONCOLOGY Hx Hematology/Oncology Disorders: No Family Medical History Hx Cancer: Grandparents Hx Diabetes: Grandparents Physical Exam - General General Appearance: Alert, Oriented x3, Cooperative Limitations: No limitations - Head Head exam: Atraumatic, Normal inspection - Eye Eye exam: Normal appearance - ENT ENT exam: Normal exam Ear exam: Normal external inspection Nasal Exam: Normal inspection Mouth exam: Normal external inspection - Neck Neck exam: Normal inspection - Respiratory Respiratory exam: Normal lung sounds bilaterally. negative: Respiratory distress - Cardiovascular Cardiovascular Exam: Regular rate, Normal rhythm, Normal heart sounds - Rectal Rectal exam: Deferred - exam: Deferred - Extremities Extremities exam: Normal inspection, Calf tenderness (he has a scar over that is 3cm lateral upper third of the lower leg. The leg itself is normal to inspection, no warmth, redness, swelling. No visible FB. No overt signs of infection at this time.), Full ROM, Normal capillary refill, Other (No joint tenderness, swelling, pain, redness, warmth or signs of joint involvement.). negative: Joint swelling, Pedal edema, Tenderness Image of Full Body: 1 - location of the pain, scar, and the area he is suspicious for a FB from 2 months ago 2 - normal knee examination, no swelling, tenderness or signs of involvment. - Back Back exam: Reports: Normal inspection - Neurological Neurological exam: Alert, Oriented X3 - Psychiatric Psychiatric exam: Normal affect, Normal mood. negative: Agitated, Anxious - Skin Skin exam: Dry, Intact, Normal color, Warm. negative: Erythema (No warmth or redness to suggest infection) Course - Reevaluation(s) Reevaluation #1: The patient was seen and examined. He has a well healed scar of the lateral right leg. No overt signs of FB or infection. It is NOT over the joint. No swelling, warmth, redness, pus, or signs of infection. 03/12/18 23:13 The prelim XR was reviewed by me. On one view there are two thin linear radio opaque areas that are likely FB. 03/12/18 23:45 I explained that the area of the possible FB retention does not appear to be overtly infected, no signs of joint involvement. I explained the risks of cutting open the skin searching for FB. I do not recommend exploration in the ED setting as the leg does not demonstrate signs of acute complication. In addition, he has been drinking and smoking marijuana tonight to "self medicate" . I explained that an invasive procedure that is elective would require a clearly sober individual. I recommended referral to a general surgeon as an outpatient to evaluate for removal if indicated or if a complication arises. There are no signs of joint involvement or joint infection. The scar from 2 months ago is the width of my hand from the joint. I do not recommend acute intervention when there are no signs of acute complication of the foreign body retention. 03/13/18 00:02 Disposition Disposition: Discharge Clinical Impression: Soft tissues foreign body Disposition: Home, Self-Care Condition: (1) Good Instructions: Soft Tissue Foreign Body (ED) Additional Instructions: You have been referred to general surgery for possible foreign body removal of the glass Be seen immediately if you have redness, warmth, or swelling in the are where the glass has been for 2 months Do not try to remove the glass yourself Referrals: [facility] [Provider Group] Gold Navas [DOCTOR OF OSTEOPATH] - Forms: Patient Portal Access Time of Disposition: 23:55 Quality - Quality Measures Quality Measures: N/A - Blood Pressure Screening Does Patient Have Any of the Following: No Blood Pressure Classification: Pre-Hypertensive BP Reading Systolic Measurement: 131 Diastolic Measurement: 82 Screening for High Blood Pressure: < Pre-Hypertensive BP, F/U Documented > [ G8950] Pre-Hypertensive Follow-up Interventions: Referral to alternative/primary care provider.
--- NOTE | 2018-03-14 12:05 | RADIOLOGY REPORT ---
EXAM: RIGHT LOWER LEG HISTORY: INJURY FROM LIGHT BULB IN DECEMBER, POSSIBLE FOREIGN BODY. TECHNIQUE: Three views of the right lower leg were obtained. A preliminary report was provided by [facility]. Comparison: No prior right lower leg series with which to compare. Encounter: Initial. FINDINGS: On the AP view there are two faint linear opacities in the superficial soft tissues along the lateral aspect of the upper calf, one just superior to the other. The more superior of the two measures about 8.3 mm in length and the more inferior about 8.8 mm. These are consistent with small adjacent foreign bodies. They are not clearly seen on the AP view, probably obscured by the greater density of the overlapping tibia or fibula. No fracture of the right lower leg identified and the right lower leg appears otherwise negative. IMPRESSION: A COUPLE ADJACENT LINEAR APPARENT FOREIGN BODIES IN THE SUPERFICIAL SOFT TISSUES OF THE UPPER RIGHT CALF LATERALLY DESCRIBED ABOVE. JOB NUMBER: [id number] MTDD
== END 2018-03-13 00:05 | disposition home or self-care (01) ==
LOC: ER 22:59
DX: M79.5 Residual foreign body in soft tissue (principal); F17.210 Nicotine dependence, cigarettes, uncomplicated
CPT/HCPCS: 99283; 99284